=== PATIENT | female | born 1955 | race Caucasian/White ===

== ENCOUNTER → 2023-06-08 13:55 | Outpatient (REF) | payer MEDICARE, BC, SELFPAY | LOC: HWRAD 13:55 | PROVIDERS: ATTENDING PHYSICIAN Family Medicine | DX: M81.0 Age-related osteoporosis without current pathological fracture (principal) | CPT/HCPCS: 77080 ==

== ENCOUNTER → 2023-06-26 14:45 | Outpatient (REF) | payer MEDICARE, BC, SELFPAY | LOC: WDC 14:45 | PROVIDERS: ATTENDING PHYSICIAN Surgery; FAMILY PHYSICIAN Family Medicine | DX: R92.8 Other abnormal and inconclusive findings on diagnostic imaging of breast (principal) | CPT/HCPCS: 76642 ==

== ENCOUNTER → 2023-07-05 10:49 | Outpatient (REF) | payer MEDICARE, BC, SELFPAY ==
[2023-07-05 12:04] LABS: % Basophils 0.7 % (0-2); % Eosinophils 3.2 % (0-6); % Immature Granulocytes 0.1 % (0-0.5); % Lymphocytes 34.4 % (20.5-51.1); % Monocytes 6.8 % (1.7-9.3); % Neutrophils 54.8 % (42.2-75.2); Absolute Basophils 0.1 10^3/uL (0-0.2); Absolute Eosinophils 0.2 10^3/uL (0-0.7); Absolute Lymphocytes 2.4 10^3/uL (1.2-3.4); Absolute Monocytes 0.5 10^3/uL (0.1-0.6); Absolute Neutrophils 3.9 10^3/uL (1.4-6.5); Hematocrit 42.7 % (37.0-47.0); Hemoglobin 13.9 g/dL (12.0-16.0); Mean Corp Hgb Conc. 32.6 g/dL (33.0-37.0); Mean Corpuscular Volume 92.2 fL (81.0-99.0); Mean Platelet Volume 9.3 fL (7.4-10.4); Nucleated Red Blood Cells % 0 %; Platelet Count 228 10^3/uL (130-400); Red Blood Cell Count 4.63 10^6/uL (4.20-5.40); Red Cell Dist. Width 14.6 % (11.5-14.5); White Blood Cell Count 7.1 10^3/uL (4.8-10.8)
[2023-07-05 12:35] LABS: Vitamin D, 25-OH*** 82.2 ng/mL (30-80)
[2023-07-05 12:49] LABS: TSH 0.64 uIU/ml (0.47-4.68)
[2023-07-05 14:07] LABS: Glycohemoglobin (HgbA1c) 5.5 % (4.0-5.6)
== END ==
LOC: REG 10:49
PROVIDERS: ATTENDING PHYSICIAN Family Medicine
DX: Z00.00 Encounter for general adult medical examination without abnormal findings (principal); E66.01 Morbid (severe) obesity due to excess calories; I10 Essential (primary) hypertension; E78.5 Hyperlipidemia, unspecified; M81.0 Age-related osteoporosis without current pathological fracture; Z79.899 Other long term (current) drug therapy
CPT/HCPCS: 36415; 82306; 83036; 84443; 85025

== ENCOUNTER → 2023-07-12 11:50 | Outpatient (REF) | payer MEDICARE, BC, SELFPAY ==
[2023-07-12 13:37] LABS: Urine Albumin Negative (Neg - Trace); Urine Bilirubin Negative (Negative); Urine Character Clear (Clear); Urine Color Yellow; Urine Glucose Negative (Negative); Urine Ketone Negative (Negative); Urine Leukocyte Trace (Negative); Urine Nitrite Negative (Negative); Urine Occult Blood Negative (Negative); Urine Urobilinogen Negative (Neg - 1+)
[2023-07-12 13:59] LABS: ALT (SGPT) 45 U/L (0-35); AST (SGOT) 53 U/L (14-36); Albumin 4.1 g/dl (3.5-5.0); Alkaline Phosphatase 124 U/L (38-126); Blood Urea Nitrogen 12 mg/dl (7-17); Calcium 9.6 mg/dl (8.4-10.2); Carbon Dioxide 27 mmol/L (22-30); Chloride 102 mmol/L (98-107); Cholesterol 196 mg/dl (50-199); Glucose 102 mg/dl (70-99); HDL Cholesterol 83 mg/dl; LDL Cholesterol, Calculated 92 mg/dl; Potassium 4.3 mmol/L (3.5-5.1); Sodium 138 mmol/L (135-145); Total Bilirubin 0.8 mg/dl (0.2-1.3); Total Cholesterol 196 mg/dl (50-199); Total Protein 6.8 g/dl (6.3-8.2); Triglyceride 106 mg/dl (10-149); Very Low Density Lipoprotein 21 mg/dl (0-30); eGFR > 60.00
[2023-07-12 14:03] LABS: Urine Squamous Cell 0-2 /LPF (Few); Urine White Cell 0-2 /HPF (0-5)
== END ==
LOC: REG 11:50
PROVIDERS: ATTENDING PHYSICIAN Family Medicine
DX: Z00.00 Encounter for general adult medical examination without abnormal findings (principal); I10 Essential (primary) hypertension; E78.5 Hyperlipidemia, unspecified; M81.0 Age-related osteoporosis without current pathological fracture
CPT/HCPCS: 36415; 80053; 80061; 81003; 81015; 82465; 83718

== ENCOUNTER → 2023-08-30 12:17 | Outpatient (REF) | payer MEDICARE, BC, SELFPAY | LOC: HWRAD 12:17 | PROVIDERS: ATTENDING PHYSICIAN Family Medicine | DX: R51.9 Headache, unspecified (principal) | CPT/HCPCS: 70450 ==

== ENCOUNTER → 2023-10-04 14:02 | Outpatient (REF) | payer MEDICARE, BC, SELFPAY | LOC: HWRAD 14:02 | PROVIDERS: ATTENDING PHYSICIAN Family Medicine | DX: M25.551 Pain in right hip (principal); M25.552 Pain in left hip; M79.641 Pain in right hand; M79.642 Pain in left hand | CPT/HCPCS: 73130; 73522 ==

== ENCOUNTER → 2023-11-01 12:47 | Outpatient (REF) | payer MEDICARE, BC, SELFPAY | LOC: HWRAD 12:47 | PROVIDERS: ATTENDING PHYSICIAN Family Medicine | DX: E06.3 Autoimmune thyroiditis (principal) | CPT/HCPCS: 76536 ==

== ENCOUNTER → 2023-12-19 09:28 | Outpatient (REF) | payer MEDICARE, BC, SELFPAY ==
[2023-12-19 12:44] LABS: Erythrocyte Sed Rate 25 mm/hour (0-20)
[2023-12-21 07:02] LABS: CCP Antibody IgG/IgA 4 Units (0-19)
[2023-12-21 07:56] LABS: ANA, IgG Reflex to HEp-2 None Detected (None Detected)
== END ==
LOC: HWLAB 09:28
PROVIDERS: ATTENDING PHYSICIAN Family Medicine
DX: M81.0 Age-related osteoporosis without current pathological fracture (principal); M79.641 Pain in right hand; M79.642 Pain in left hand; Z15.89 Genetic susceptibility to other disease; M25.551 Pain in right hip; M25.552 Pain in left hip
CPT/HCPCS: 36415; 82533; 85652; 86038; 86140; 86200; 86430

== ENCOUNTER 2025-03-01 17:55 | Emergency (ER) | payer MEDICARE, BC, SELFPAY ==
[2025-03-01 17:56] VITALS: BP 136/100
--- NOTE | 2025-03-01 19:47 | ED.MUSCINJ ---
HPI-Injury
General
Chief Complaint: Musculo-Skeletal Complaint
Source: patient
Exam Limitations: none
Time Seen by Provider: 03/01/25 18:28
Nursing documentation reviewed up to this point in time: agreed with
History of Present Illness-Injury
Is this injury a work related problem?: No
Is pt an associate of [facility]/[place]?: No
Initial Injury comments:
Patient states she was pulling on [employer] stand and slipped. She states she fell backwards during a reverse somersault. She complains of pain to her left wrist. Incident occurred just prior to arrival. She was brought to the emergency
department by her son for evaluation.
Past History
Past History
ED Past Medical History: Cancer (Melanoma x2), HTN, Psychiatric (anxiety), Other (Aparicio's esophagus, reflux, IBS) and Other (Interstitial cystitis, osteoporosis, balance problems, T11 compr fx s/p plasty June at [facility])
ED Past Surgical History: Appendectomy and Cholecystectomy
Social History
Tobacco: Non-smoker
Alcohol: None
Drug: None
Personal:
Living: with family
Review of Systems
Review of Systems
Allergies reviewed?: Yes
All Other Systems: ROS reviewed and negative except as documented in HPI and ROS
Constitutional: Reports no symptoms
Musculoskeletal: Reports joint pain (Pain to left wrist.)
Skin: Reports no symptoms
Neurological: Reports no symptoms
Psychiatric: Reports no symptoms
Musculoskeletal Injury Exam
Musculoskeletal Injury Exam
Left Wrist:
Pain with Movement?: Moderate
Tender to palpation?: Moderate
Soft tissue swelling?: Moderate
External deformity and angulation?: None
Joint effusion?: None
Contusion?: None
Hematoma-local bleeding into tissue?: None
Strain- Sprain- Tear (Connective tissue injury)?: Moderate
Crepitus with movement?: No
Joint instability?: No
Malalignment/deformity?: No
Range of motion: Limited
Distal skin color and temperature: normal-warm & good color
Capillary Refill: normal
Normal distal neurovascular exam?: Yes
Peripheral Pulses: radial (left): 3+
Phy Exam
General Physical Exam
General Presentation: well appearing
General age: appears stated age
General Skin: warm and dry
General Habitus: normal
General Mental: alert
Musculoskeletal Exam
Musculoskeletal Exam: neuro vasc intact and other (Rings were removed from her left hand and jewelry was placed in the custody of her son.)
Skin Exam
Skin Exam: normal color, warm/dry and no rash
Psychiatric Exam
Psychiatric Exam: normal mood/affect
Injury Course
Orders/Labs/Results
Orders:
Orders
03/01/25 17:58
Electrocardiogram (*1) Urgent
Reason for Study: Tachycardia
03/01/25 17:59
EKG- Treatment ONCE
03/01/25 18:00
Wrist, Left 3 Views CR [CR Wrist - Left Min 3 Views] Urgent
Comment:
Reason For Exam: fall
03/01/25 19:07
Navicular Views [CR Navicular Views] Urgent
Comment:
Reason For Exam: fall,
03/01/25 19:44
Thumb Spica Left-Treatment ONCE
*Radiology
Radiology exam reviewed: radiology read reviewed
*Pulse Oximetry
SaO2: 97
Oxygen Mode of Delivery: Room air
Patient hypoxic: no
*Critical Care Note
Total Time (30-74mins, 75-104mins- exclusive of procedures): Not Applicable
Update Note
Update Note:
Patient to the emergency department for evaluation of left wrist pain. 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 She denies hitting her head or any loss of
consciousness. X-rays reviewed no fracture noted on x-ray. Will place in a thumb spica splint and she will be discharged home. She was given instructions on signs and symptoms to return to the emergency department and she is agreeable to this
plan. She was also given the number for orthopedic follow-up, will follow-up if symptoms do not improve over the course of the next week.
ED Attending Note
-
Portions of this chart may have been created with voice recognition software.� Occasional wrong word or��sound alike� substitutions may have occurred due to the inherent limitations of voice recognition software.
Discharge Plan
Departure
Patient Disposition: Home (Routine Discharge)
Date of Disposition: 03/01/25
Time of Disposition: 19:51
Patient with high blood pressure during this ER visit?: No
Condition: Good
Covid-19: Not Applicable
Discharge Problem:
Sprain of wrist, left
Instructions: Ibuprofen, Using Cold for Pain, Splint Care, Wrist Sprain ED
Prescriptions:
No Action
esomeprazole magnesium [Nexium] 20 MG capsule,delayed release(DR/EC)
40 mg PO BID
solifenacin 5 MG tablet
10 mg PO DAILY
Klonopin:
2 mg PO HS
fluticasone propionate [Flovent HFA] 1 PUFF HFA aerosol inhaler
2 puff inhalation R BID Qty: 1 0RF
cetirizine [Zyrtec] 10 MG tablet
10 mg PO DAILYPRN PRN (Reason: allergies)
atorvastatin 10 MG tablet
10 mg PO DAILY
lisinopril 10 MG tablet
10 mg PO DAILY
buspirone 15 MG tablet
15 mg PO BID
duloxetine 60 MG capsule,delayed release(DR/EC)
120 mg PO DAILY
levomefolate calcium [Deplin] 7.5 MG tablet
15 mg PO DAILY
ascorbic acid (vitamin C) [Vitamin C] 1,000 MG tablet
1,000 mg PO DAILY
beverly Guajardo B.animalis 1 EACH capsule
1 ea PO DAILY
krgwhkfi-bsr-vbwl fum-folic ac 1 EACH tablet
PO DAILY
Calcium + D Soft Chewable Tab
1 tab PO DAILY
Cholecalciferol (Vitamin D3) [Vitamin D3] 50 MCG Capsule
100 mcg PO DAILY
Vit B12 Nature Made
2,500 mcg DAILY AT 0700
albuterol sulfate 1 PUFF HFA aerosol inhaler
2 puff inhalation R Q4HPRN PRN (Reason: SOB)
SUPREP BOWEL PREP KIT
1 PO DIRECTED
romosozumab-aqqg [Evenity] 210 MG/2.34 ML syringe
210 mg SQ MONTHLY
Referrals:
Jj Butcher MD [Active, Orthopedics]
Referral Note: Follow-up if your symptoms do not start to improve over the course of the next week.
Maurizio St DO [Family Provider, Family Practice]
Interventions
Interventions:
*Risk Screen - Suicide Last Done: 03/01/25 17:56
*General Assessment Last Done: 03/01/25 17:56
*Neglect/Abuse Screening Last Done: 03/01/25 17:56
*ED COVID-19 Vaccine History Last Done: 03/01/25 18:44
[facility] Risk Assessment Tool Last Done: 03/01/25 17:55
ED-Musculoskeletal Assessment Last Done: 03/01/25 18:44
Discharge Date and Time
Print Language: MALAY
== END 2025-03-01 20:35 | disposition home or self-care (01) ==
LOC: EMR 17:55
PROVIDERS: EMERGENCY PHYSICIAN Emergency Medicine; FAMILY PHYSICIAN Family Medicine
DX: S63.502A Unspecified sprain of left wrist, initial encounter (principal); W19.XXXA Unspecified fall, initial encounter; I10 Essential (primary) hypertension; F41.9 Anxiety disorder, unspecified; K58.9 Irritable bowel syndrome, unspecified; M19.032 Primary osteoarthritis, left wrist; M81.0 Age-related osteoporosis without current pathological fracture; Z85.820 Personal history of malignant melanoma of skin; Z87.19 Personal history of other diseases of the digestive system; Z90.49 Acquired absence of other specified parts of digestive tract
CPT/HCPCS: 99283; 29125; 73110; 93005